=== PATIENT | female | born 1995 | race Caucasian/White ===

== ENCOUNTER 2017-03-18 02:15 | Emergency (ER) | payer OTHER ==
[~2017-03-18] VITALS: Ht 157.5 cm; Wt 135.6 kg
[2017-03-18] MEDS ORDERED: DIPHENHYDRAMINE 50 MG/ML, 1ML ONE (03:10)
[2017-03-18] MEDS ORDERED: DIPHENHYDRAMINE 50 MG/ML, 1ML IM ONE (03:30)
[2017-03-18 03:33] LABS: ASPARTATE AMINO TRANSFERASE 11 U/L (15-37); BLOOD UREA NITROGEN 23 mg/dL (7-18)
[2017-03-18] MEDS ORDERED: SODIUM CHLORIDE 0.9%, 500ML IVBOLUS ONE (05:00)
[2017-03-18 06:09] LABS: PATH.CAST-FLAG NOT PRESENT; SPERM-FLAG NOT PRESENT; SRC-FLAG NOT PRESENT; XTAL-FLAG NOT PRESENT; YLC-FLAG NOT PRESENT
[2017-03-18 06:50] VITALS: BP 129/79
== END 2017-03-18 06:53 | disposition home or self-care (01) ==
LOC: ED 04:03
DX: T78.40XA Allergy, unspecified, initial encounter (principal); E86.0 Dehydration; L50.0 Allergic urticaria; X58.XXXA Exposure to other specified factors, initial encounter
CPT/HCPCS: 36415; 80053; 81001; 85025; 87086; 96360; 96372; 99284; J1200; J7040; J7512